=== PATIENT | male | born 1995 | race Caucasian/White ===

== ENCOUNTER 2018-09-08 02:52 | Emergency (ER) | payer SELFPAY ==
[~2018-09-08] VITALS: Ht 185.4 cm; Wt 83.9 kg
--- NOTE | 2018-09-08 03:22 | ED Lower Extremity ---
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[employer], BUT NEVER HAD SURGERY HAS NOT TAKEN ANYTHING FOR PAIN [facility] Allergies and Home Medications Patient Home Medication List Home Medication List Reviewed: Yes Review of Systems Constitutional: no symptoms reported Musculoskeletal: see HPI Psychiatric/Neurological: No Symptoms Reported Past Raektlz-Avjrmw-Voxgan Hx Patient Social History Alcohol Use: Regular Use Recent Foreign Travel: No Contact w/Someone Who Travel: No Past Medical History Musculoskeletal: Yes (LEFT KNEE INJURY) Physical Exam Vital Signs Vital Signs - First Documented 09/08/18 03:15 Temp 98.1 Pulse 121 Resp 18 B/P (MAP) 136/104 (115) O2 Delivery Room Air Capillary Refill : Height, Weight, BMI Height: '" Weight: lbs. oz. kg; BMI Method: General Appearance: other (+ STRONG ODOR OF ETOH, SPEECH SLOW AND SLIGHTLY SLURRED, ) Knees: right knee normal inspection; left knee other (TENDERNESS LATERALLY . NO SWELLING OR EXTERNAL EVIDENCE OF TRAUMA. FULL FLEXION AND EXTENSION. NO GROSS LIGAMENT LAXITY, BUT EXAM LIMITED BY DISCOMFORT. MOTOR/SENSORY / VASCULAR INTACT. 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, no motor/sensory deficits, alert Skin: normal color, warm/dry; No ecchymosis Procedures/Interventions Splinting and Joint Reduction : Davidson wrap: Yes Immobilizers: 24 inch Knee Progress/Results/Core Measures Results/Orders My Orders Orders - HELGAGUY K DO Knee, Left, 3 Views (09/08/18 03:18) Davidson Bandage (09/08/18 04:00) Knee Immobilizer (09/08/18 04:00) Vital Signs/I&O 09/08/18 03:15 Temp 98.1 Pulse 121 Resp 18 B/P (MAP) 136/104 (115) O2 Delivery Room Air Departure Impression Primary Impression: Left knee sprain Disposition: 01 HOME, SELF-CARE Condition: Stable Departure-Patient Inst. Referrals: [facility] (PCP) Primary Care Physician JOVANNY HAWKINS MD Patient Instructions: How to Use an Elastic Bandage, Knee Immobilizer (DC), Knee Sprain (DC) Add. Discharge Instructions: DAVIDSON WRAP AND KNEE IMMOBILIZER AT ALL TIMES ICE TO AREA AT 20 MINUTE INTERVALS ELEVATE LEG MUCH POSSIBLE FOLLOW UP WITH DR. HAWKINS OR ORTHOPEDIC SURGEON OF CHOICE IN 1 WEEK FOR FURTHER CARE Scripts Naproxen (Naproxen) 500 Mg Tablet 500 MG PO BID, #20 TAB Prov: GUY PARTIDA DO 09/08/18 GUY PARTIDA DO September 08, 2018 03:22
--- NOTE | 2018-09-08 03:50 | NUR ---
PT HAS VISITOR THAT PRESENTS TO ED REGISTRATION STATING "I HAVE HIS ID HE DOESN'T HAVE HIS WALLET." SUPERVISOR DUMPING INFORMS VISITOR THE PT CANNOT HAVE VISITORS AT THIS TIME. FRIEND STATES, "HOW LONG IS IT GOING TO BE?". THIS SAME QUESTION AND ANSWER SCENARIO WAS REPEATED 3-4 TIMES BETWEEN THIS CIO/RN AND VINICIUS (REGISTRATION). VINICIUS ATTEMPTS TO CLOSE WINDOW FRIEND BECOMES INCREASINGLY LOUD. THE VISITOR THEN GRABS WINDOW TO KEEP IT OPEN TO CONTINUE ASKING THE SAME QUESTIONS OVER AND OVER. VISITOR TOLD IF HE DOES NOT LET GO OF WINDOW POLICE WILL BE CALLED. VISITOR LETS GO OF WINDOW AND THEN BEGINS TO YELL LOUDLY "THIS IS WHY YOU HAVE A 1.2 RATING". VISITOR CONTINUALLY ASKS HOW LONG IT WILL BE UNTIL HE CAN SEE PT AND BECOMING INCREASINGLY BELLIGERENT. VISITOR NOTIFIED THAT IF THIS DOES NOT CEASE THE POLICE WILL BE CALLED. VISITOR CONTINUES TO STATE "YOUR NURSES ARE TERRIBLE, THATS WHY YOU HAVE A 1.2 RATING."
[2018-09-08] MEDS ORDERED: NAPR-915 PO (04:05)
[2018-09-08 04:13] VITALS: BP 135/95
--- NOTE | 2018-09-08 06:49 | Diagnostic Imaging Report ---
INDICATION: Left knee pain playing football. FINDINGS: 3 views nonweightbearing left knee. Joint spaces well preserved. There are no fractures. Articulating surfaces are smooth. Patellofemoral joint appears normal. IMPRESSION: Negative left knee Dictated by: Dictated on workstation # [id number]
== END 2018-09-08 04:15 | disposition home or self-care (01) ==
LOC: ER 02:55
DX: S83.402A Sprain of unspecified collateral ligament of left knee, initial encounter (principal); X50.1XXA Overexertion from prolonged static or awkward postures, initial encounter; Y92.219 Unspecified school as the place of occurrence of the external cause; Y93.61 Activity, american tackle football
CPT/HCPCS: 73562